=== PATIENT | male | born 1965 | race Caucasian/White ===

== ENCOUNTER 2022-12-18 15:07 | Emergency (ER) | payer SELFPAY ==
--- NOTE | ~2022-12-18 | CT_ITS ---
EXAMINATION: CT lumbar spine wo con DATE: 12/18/2022 17:34 INDICATION: left lower back pain with radicular symptoms . TECHNIQUE: Computed tomography (CT) of the lumbar spine was performed without intravenous contrast. A utomated exposure control and iterative reconstruction technique were employed. The dose-length produ ct was 1029.34 mGy-cm. COMPARISON: None. FINDINGS: 5 nonrib-bearing lumbar-type vertebral bodies. Pedicles intact. Normal vertebral body align ment. Vertebral body heights preserved. Multilevel moderate degenerative disc disease and facet arthr opathy. Bilateral SI joint fusion. IMPRESSION: No acute fracture or traumatic malalignment in the lumbar spine. No severe neural foraminal or centra l canal narrowing. Reviewed, dictated and finalized at location K. IMPRESSION: No acute fracture or traumatic malalignment in the lumbar spine. No severe neur al foraminal or central canal narrowing.
[2022-12-18 15:11] VITALS: BP 177/103; PULSE 77; RESP 17; TEMP 36.8; O2SAT 96
[2022-12-18 17:02] VITALS: BP 179/91; PULSE 74; PULSE 78; RESP 16; O2SAT 98
[2022-12-18] MEDS: NEBIVOLOL HCL 5 MG TABLET 20 MG PO (17:02)
[2022-12-18 17:04] LABS: Appearance Urine Clear (Clear); Bilirubin Urine Negative (Negative); Blood Urine Negative (Negative); Color Urine Yellow (Yellow); Glucose Urine UA Negative (Negative); Ketones Urine Negative (Negative); Leukocyte Esterase Ur Negative LEU/UL (Negative); Nitrate Urine Negative (Negative); Protein Urine Negative (Negative); Specific Grav Ur 1.019 (1.001-1.035); Urobilinogen Urine 0.2 mg/dL (<2.0); pH Urine 5.5 (5.0-9.0)
[2022-12-18 17:05] LABS: Add Urine Microscopic? NO
[2022-12-18 17:55] VITALS: BP 164/85; PULSE 72; RESP 16; O2SAT 97
--- NOTE | 2022-12-18 17:57 | ED.BACK ---
HPI - Back Pain/Injury General Chief Complaint: Back Pain/Injury Stated Complaint: back pain Time Seen by Provider: 12/18/22 16:09 Source: patient, family, RN notes reviewed and old records reviewed Mode of arrival: ambulatory Limitations: no limitations History of Present Illness HPI Narrative: This is a 57 year old male with history of hypertension who presents for evaluation of left lower back pain. Patient reports he did heavy lifting at work on . He woke up on Monday with severe left lower back pain that radiate to posterior thigh. He reports he went to [facility] for evaluation. He states he had UA, and CT renal. He was told that he did not have kidney stone and he should take tylenol and ibuprofen for her pain. He states his pain has improved but he continues to have pain. He states his daughter recommended that he get a second opinion for cause of his pain. He denies associated abdominal pain, groin pain, vomiting, fever, dyuria, hematuria, incontinence or leg weakness. his pain is worse with walking and bending. He took tylenol at 11 am this morning. He has not taken his bystolic today. Related Data Allergies Allergy/AdvReac Type Severity Reaction Status Date / Time No Known Allergies Allergy Verified 12/18/22 15:08 Review of Systems Constitutional: Constitutional: Denies weakness Cardiovascular: Cardiovascular: Denies syncope, Denies rapid heart rate, Denies irregular heart rhythm, Denies leg edema and Denies dyspnea Respiratory: Respiratory: Denies chest congestion, Denies hemoptysis, Denies excessive phlegm production and Denies dyspnea Gastrointestinal: Gastrointestinal: Denies abdominal pain, Denies hematochezia, Denies diarrhea and Denies vomiting Genitourinary: Genitourinary: Denies hematuria, Denies dysuria, Denies penile discharge and Denies testicular pain Musculoskeletal: Musculoskeletal: Reports back pain, Denies joint swelling, Denies loss of height and Denies muscle weakness Neurologic: Denies syncope, Denies focal weakness and Denies weakness PMFSH Past Medical History Medical History Essential (primary) hypertension 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 Mixed hyperlipidemia Family History Family History (System 04/14/21 @ 10:58 by Thea Luz) Father Hypertension Sibling Hypertension Grandparent Family history of Parkinson's disease Other Family history of allergic disorder Social History Social History Smoking status: Never smoker Alcohol intake: current Exam Const: General: no acute distress and alert Nutritional Appearance: well nourished Orientation/consciousness: patient oriented x3 Limitations: no limitations HENMT: Head: normal to inspection Eyes: EOM: EOMs intact bilaterally Chest: Chest palpation & inspection: normal inspection of the chest Resp: Effort & Inspection: normal respiratory effort Auscultation: clear to auscultation bilaterally Cardio: Rate: regular rate Rhythm: regular rhythm Heart sounds: no murmurs GI: GI Palp: Yes Soft to palpation, No Tenderness to palpation present (GI), No Guarding due to palpation present (GI) and No Rigid due to palpation Auscultation: normal bowel sounds Back/Spine/Pelvis: Back: no CVA tenderness Thoracic/Lumbar Spine: paraspinal muscle tenderness on the left, No thoracic spinal tenderness and No lumbar spinal tenderness Skin: General skin exam: normal color Rashes: no rashes Wounds: no wounds Neuro: General: patient oriented x3, moves all extremities and CN's II-XI intact bilaterally Extrem: General: normal to inspection Psych: Mental Status: mental status grossly normal Affect: normal affect Attitude: cooperative Course Reevaluation(s) Reevaluation #1: I Discussed with patient CT results. no fracture, no canal stenosis. I reviewed with tori
[2022-12-18] MEDS: ORPHENADRINE CITRATE 100 MG TABLET.ER PO (18:24)
[2022-12-18] MEDS: IBUPROFEN 600 MG TABLET PO (18:25)
== END 2022-12-18 18:35 | disposition home or self-care (01) ==
PROVIDERS: Emergency Provider General Practice; PCP Student in an Organized Health Care Education/Training Program
DX: M54.40 Lumbago with sciatica, unspecified side (principal); I10 Essential (primary) hypertension; M10.9 Gout, unspecified; E78.2 Mixed hyperlipidemia
CPT/HCPCS: 72131; 81003; 99284; A9270

== ENCOUNTER 2023-03-20 10:20 | Emergency (ER) | payer SELFPAY ==
--- NOTE | ~2023-03-20 | XR_ITS ---
XR knee RT min 4V 03/20/2023 11:17 Indication: Right knee pain Procedure: 5 views right knee Comparison: No prior studies for comparison. Findings: There is mild tricompartment osteoarthritis. There is a large amount of prepatellar soft ti ssue swelling. No significant joint effusion. No acute fracture or traumatic malalignment. Impression: 1: Large amount of prepatellar soft tissue swelling, suspicious for bursitis. 2: Mild osteoarthritis. Reviewed, dictated and finalized at location B. Impression: 1: Large amount of prepatellar soft tissue swelling, suspicious for bursitis. 2: Mild osteoarthritis.
[2023-03-20 10:30] VITALS: BP 145/77; PULSE 60; RESP 18; TEMP 36.2; O2SAT 99
--- NOTE | 2023-03-20 10:54 | ED.LOWEXIN ---
HPI - Extremity Injury (Lower) General Chief Complaint: Extremity Injury, Lower Stated Complaint: Rt Knee Pain Time Seen by Provider: 03/20/23 10:22 Source: patient and family Mode of arrival: ambulatory Limitations: no limitations History of Present Illness HPI Narrative: 57-year-old male presents to [facility] with complaints of pain and swelling to his right knee for the past 1-2 weeks. Patient has been taking [id number] ibuprofen, apply ice and elevate his knee with minimal relief. Patient reports history of gout in his toes and knees but reports the pain feels different this time. 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 Patient denies known injury. Patient denies erythema or open wounds to his knee, fever, body aches, chills, nausea vomiting or diarrhea. Onset (ago): week(s) (1-2) Injury: Right: knee Relieving factors: cold therapy Exacerbating factors: weight bearing and movement Treatments prior to arrival: cold therapy and NSAIDS Related Data Allergies Allergy/AdvReac Type Severity Reaction Status Date / Time No Known Allergies Allergy Verified 03/20/23 10:24 Review of Systems Constitutional: Constitutional: Denies chills, Denies fatigue, Denies fever(s) and Denies weakness ENT: Denies dizziness Cardiovascular: Cardiovascular: Denies chest pain Respiratory: Respiratory: Denies cough, Denies dyspnea and Denies wheezing Gastrointestinal: Gastrointestinal: Denies diarrhea, Denies nausea and Denies vomiting Musculoskeletal: Musculoskeletal: Reports arthralgias and Reports joint swelling Comments: Right knee pain and swelling Neurologic: Denies dizziness, Denies syncope and Denies headache(s) [facility] Past Medical History Medical History Essential (primary) hypertension 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 There is no relevant family history pertinent to the presenting complaint. Exam Const: General: healthy appearing and no acute distress Nutritional Appearance: well nourished Orientation/consciousness: patient oriented x3 Limitations: no limitations HENMT: Head: normal to inspection Neck: Neck: normal visual inspection Resp: Effort & Inspection: normal respiratory effort and not labored Auscultation: clear to auscultation bilaterally, no crackles, no rales, no rhonchi and no wheezes Cardio: Rate: regular rate Rhythm: regular rhythm Heart sounds: no murmurs Skin: General skin exam: normal color Rashes: no rashes Wounds: no wounds Neuro: General: patient oriented x3 Speech: normal speech Gait exam (Neuro): Normal gait present Extrem: Other: Mild swelling noted to right knee. Increasing pain noted to right knee with range of motion. There is very minimal warmth noted. There is no erythema, bruising or open wounds noted. Psych: Affect: normal affect Attitude: cooperative Course Course Level of Care: Express Care Visit Vital Signs Vital signs: Vital Signs Temperature 36.2 C L 03/20/23 10:30 Pulse Rate 60 03/20/23 10:30 Respiratory Rate 18 03/20/23 10:30 Blood Pressure 145/77 H 03/20/23 10:30 Pulse Oximetry 99 03/20/23 10:30 Oxygen Delivery Room Air 03/20/23 10:30 Temperature 36.2 C L 03/20/23 10:30 Pulse Rate 60 03/20/23 10:30 Respiratory Rate 18 03/20/23 10:30 Blood Pressure 145/77 H
== END 2023-03-20 11:34 | disposition home or self-care (01) ==
PROVIDERS: Emergency Provider Nurse Practitioner Family; PCP Family Medicine
DX: M71.9 Bursopathy, unspecified (principal); I10 Essential (primary) hypertension; E78.2 Mixed hyperlipidemia; M1A.0720 Idiopathic chronic gout, left ankle and foot, without tophus (tophi)
CPT/HCPCS: 73564; 99213; G0463

== ENCOUNTER 2023-07-18 09:43 | Emergency (ER) | payer SELFPAY ==
--- NOTE | ~2023-07-18 | XR_ITS ---
Left ankle Technique: AP, oblique, and lateral views were obtained. Clinical History: Pain Findings: No acute fracture or dislocation is seen. Osseous alignment is anatomic. Ankle mortise and other visualized joint spaces are preserved. There is mild degenerative spurring at the tibiotalar mamadou int. Soft tissues are otherwise unremarkable. Impression: No fracture or dislocation. Mild degenerative spurring of the tibiotalar joint. Reviewed, dictated and finalized at location M. B TECHNICIAN Impression: No fracture or dislocation. Mild degenerative spurring of the tibiotalar joint.
[2023-07-18 10:04] VITALS: BP 164/83; PULSE 99; RESP 18; TEMP 36.3; O2SAT 99
--- NOTE | 2023-07-18 10:12 | ED.EXTPRO ---
HPI - Extremity Problem General Chief complaint: Extremity Problem,Nontraumatic Stated complaint: lt ankle pain Time Seen by Provider: 07/18/23 10:12 Source: patient and RN notes reviewed Mode of arrival: ambulatory Limitations: no limitations History of Present Illness HPI Narrative: 57-year-old male presents with concern for left ankle pain for about 5 weeks. He denies any distinct injury or trauma. Reports when it started hurting he was walking his dog and his dog may have pulled him a little hard. He reports he thought maybe he had gout so he took colchicine without relief. Reports he has been taking ibuprofen daily for 5 weeks with only mild temporary relief. He reports his ankle and foot becomes swollen, he has been wearing an Micky wrap at night. Reports he has an appointment with his primary doctor but not till the middle of July. He reports his pain is affecting his work and he is ?losing money at work? MD Complaint: extremity pain Related Data Allergies Allergy/AdvReac Type Severity Reaction Status Date / Time No Known Allergies Allergy Verified 07/18/23 09:53 Review of Systems Review of Systems: CONSTITUTIONAL: Denies malaise, chills, sweats, or fever. 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 There is no relevant family history pertinent to the presenting complaint Exam Narrative: GENERAL: Well-appearing, well-nourished, and in no acute distress. HEAD: Normocephalic, atraumatic. EYES: PERRLA, conjunctivae clear NECK: Supple. CHEST: Speaks in full sentences. No respiratory distress. HEART: Regular rate and rhythm. Normal and equal peripheral pulses. EXTREMITIES: Left ankle and foot have grossly normal strength and sensation, grossly normal range of motion. Mild ankle and dorsal foot proximal edema, no erythema or ecchymosis. Normal sensation with sensitivity to light touch and pain. No tenderness. No open wounds, no skin tenting, no devitalized tissue or atrophy, no trophic changes, no obvious deformity, alignment normal, nearby joints and structures intact. Distal pulses palpable and equal bilaterally, skin warm, dry, pink. Capillary refill less than 3 seconds. SKIN: Warm, dry, no rash. NEURO: Alert and oriented x3. PSYCH: Normal mood and affect Course Course Emergency Course: Patient is aware of diagnosis, understands and agrees to treatment plan. Anticipatory guidance given. Patient agrees to follow-up as directed and is aware of reasons to seek care at the emergency department. Portions of this record may have been created with voice recognition software Level of Care: Express Care Visit Vital Signs Vital signs: Vital Signs Temperature 97.3 F L 07/18/23 10:04 Pulse Rate 99 07/18/23 10:04 Respiratory Rate 18 07/18/23 10:04 Blood Pressure 164/83 H 07/18/23 10:04 Pulse Oximetry 99 07/18/23 10:04 Oxygen Delivery Room Air 07/18/23 10:04 Temperature 97.3 F L 07/18/23 10:04 Pulse Rate 99 07/18/23 10:04 Respiratory Rate 18 07/18/23 10:04 Blood Pressure 164/83 H 07/18/23 10:04 Pulse Oximetr
== END 2023-07-18 11:00 | disposition home or self-care (01) ==
PROVIDERS: Emergency Provider Nurse Practitioner
DX: M77.52 Other enthesopathy of left foot and ankle (principal); I10 Essential (primary) hypertension; E78.2 Mixed hyperlipidemia
CPT/HCPCS: 73610; 99213; G0463